=== PATIENT | male | born 2000 | race Caucasian/White ===

== ENCOUNTER 2022-08-24 12:08 | Observation (INO) ==
[~2022-08-24 12:08] MED LIST: CIPROFLOXACIN / D5W 400 MG/200 ML BAG IV SCH
[2022-08-24 12:44] LABS: Basophils # (auto) 0.03 K/uL (0-0.2); Basophils % (auto) 0.2 %; Eosinophils # (auto) 0.06 K/uL (0-0.50); Eosinophils % (auto) 0.3 %; Hematocrit (blood only) 44.8 % (40.1-51.0); Hemoglobin 15.4 g/dl (14.0-18.0); Immature Granulocytes % (auto) 0.5 %; Lymphocytes # (auto) 2.54 K/uL (1.2-3.4); Lymphocytes % (auto) 13.6 %; Mean Corpuscular Hemoglobin 29.7 pg (25.0-34.0); Mean Corpuscular Hgb Conc 34.4 g/dL (32.0-36.0); Mean Corpuscular Volume 86.5 fL (80.0-100.0); Mean Platelet Volume 9.7 fL (9.4-12.4); Monocytes # (auto) 1.57 K/uL (0.24-0.82); Monocytes % (auto) 8.4 %; Neutrophils # (auto) 14.38 K/uL (1.4-6.5); Platelet Count 211 K/uL (130-400); RDW Coefficient of Variation 12.2 % (11.5-14.5); RDW Standard Deviation 38.8 fL (36.4-46.3); Red Blood Count 5.18 M/uL (4.63-6.08); White Blood Count 18.68 K/ul (4.8-10.8)
[2022-08-24 13:18] LABS: Albumin Globulin Ratio 1.7 (0.9-2); Albumin Level 4.8 gm/dl (3.4-5.0); BUN Creatinine Ratio 14.6 (10-20); Calcium 9.9 mg/dl (8.5-10.1); Creatinine Clr Calc Pharmacy 128.8 ml/min; Est GFR (African American) 121.5 ml/min; Est GFR (Non-African American) 104.8 ml/min; Globulin 2.9 gm/dl (2.5-4.0); Total Protein 7.7 gm/dl (6.0-8.3)
[2022-08-24] MEDS ORDERED: OPTIRAY 350 100ml IV ONE (13:29)
--- NOTE | 2022-08-24 13:52 | CT Scan Report ---
CT abd pelvis IV con only CLINICAL HISTORY: RLQ ABD PAIN TECHNIQUE: Helical axial images of the abdomen and pelvis were obtained and displayed. Automated dose lowering techniques and/or adjustment according to patient size were utilized for this exam. This e xam was performed with intravenous contrast. CT DOSE: 407.46 mGy.cm COMPARISON: None available at the time of this dictation. FINDINGS: Lower chest: No acute abnormality. Liver: Unremarkable. No focal lesions are seen. Gallbladder and biliary tree: No calcified gallstones. Normal caliber wall. No intra- or extrahepatic biliary ductal dilation. Pancreas: Unremarkable, no focal lesions. Spleen: Unremarkable. Adrenals: Unremarkable. Kidneys and ureters: Unremarkable. Bladder: Unremarkable. Reproductive organs: Unremarkable. Bowel: The appendix measures 11 mm in diameter with associated fat stranding. No perforation or absce ss is seen. Lymph nodes Retroperitoneal: Unremarkable. Pelvic: Unremarkable. Mesenteric: Subcentimeter lymph nodes are noted. These are most prominent in the right lower quadrant . Peritoneum: Normal. Vessels: Unremarkable. Abdominal wall: Unremarkable. Bones: Unremarkable. IMPRESSION: Findings compatible with acute appendicitis without evidence of perforation or abscess. ACT 112: Negative or not required by law. Electronically signed by: Emerson Coreas M.D. 08/24/2022 1:51 PM
--- NOTE | 2022-08-24 14:18 | Emergency Department Note ---
Impression & Plan Acute appendicitis ED Provider Note CHIEF COMPLAINT: Right-sided abdominal pain since this morning HISTORY OF PRESENT ILLNESS: Patient is a healthy 21-year-old male who presents emergency department for evaluation of abdominal pain. His symptoms started when he woke up yesterday morning. He had vague, generalized abdominal discomfort that persisted throughout the day and got worse in the evening. He thought they were "hunger pains initially" but they got worse. He felt bloated, and tried taking some ibuprofen and Tums for his symptoms. He was able to move his bowels but it did not help. When he woke up this morning the pain was more localized to the right lower quadrant. It hurts with movement. He rates it a 7/10. He has not vomited. He has not felt feverish. He denies any urinary symptoms. REVIEW OF SYSTEMS: Review of systems as per HPI. All other systems reviewed we re negative. 10 systems reviewed. PMH: Electronic medical records are reviewed and summarized as above/below. See Problem List. SOCIAL HISTORY: Patient is a [employer] student from the [facility]. He lives locally in an apartment. He does not smoke. PHYSICAL EXAM: Vital Signs: Reviewed Nurse's notes. CONSTITUTIONAL: Patient is a pleasant, well-appearing 21-year-old male who is awake and alert and sitting semiupright on the gurney in no acute distress. EYES: Pupils equal, round, reactive to light and accommodation. EOMs intact without nystagmus. Sclera are anicteric. CARDIOVASCULAR: Regular rate and rhythm. Peripheral pulses easily palpable. RESPIRATORY: Breath sounds equal and clear to auscultation. ABDOMEN: Bowel sounds are present. The abdomen is soft, tender to percussion and palpation of the right lower quadrant with voluntary guarding. INTEGUMENTARY: No lesions or rash, normal skin turgor. LYMPH: No lymphadenopathy. EMERGENCY DEPARTMENT COURSE: The patient was seen and assessed as above. Old records were reviewed. Critical pathways were implemented prior to my assessment of the patient. CBC with differential, CMP lipase and urinalysis were ordered. He was made NPO. I did order the CT scan of the abdomen and pelvis with IV contrast while the patient was still in the waiting room given his complaint. Laboratory studies reviewed, there is an elevated white count at almost 19,000 with left shift. Electrolytes and renal functions are normal. Transaminases and lipase are not elevated. He has not yet provided a urine sample. CT scan of the abdomen and pelvis with IV contrast is consistent with acute appendicitis without perforation or abscess. No other acute findings. I was able to review the patient's CT scan, he was still out in the waiting room, I asked our nursing staff to get him into a room, he was placed in C12. He was examined at this time. Test results were discussed with him. He has been n.p.o. today. I did order some IV fluids and a COVID swab which was negative. Consultation was placed with general surgery, Dr. Rios, who will see the patient and take him to the OR. Differential diagnoses considered included appendicitis, UTI, kidney stone, pyelonephritis, hernia, infectious versus inflammatory colitis/enteritis, foodborne illness, mesenteric adenitis, among others. Past Med/Surg History Medical History No significant past medical history Surgical History No history of previous surgery Social History Smoking Status: Never smoker Feels Safe at Home: Yes Allergies Allergies Allergy/AdvReac Type Severity Reaction Status Date / Time Penicillins Allergy Intermediate Rash, hives Verified 08/24/22 14:17 Results & Data (ED) Vital Signs Vital Signs - 24 hr 08/24/22 12:14 08/24/22 14:01 Temperature 36.7 C Temperature Source Temporal Artery Scan Pulse Rate 79 Pulse Rate [Right Finger] 80 Respiratory Rate 16 18 Blood Pressure 142/93 H Blood Pressure [Right Arm] 136/90 Blood Pressure Mean 109 Blood Pressure Mean [Right Arm] 105 Pulse Oximetry 95 98 Oxygen Delivery Method Room Air Sepsis Recent Fever Within 48 Hours No Sepsis New/Unexplained Change in Mental Status No Sepsis Action Taken by Nursing No Action Required Home Medications Current Medication List: was personally reviewed by me Laboratory Data Attestation: I reviewed the patient's lab results. Result diagrams: 08/24/22 12:19 08/24/22 12:19 Lab Results 08/24/22 08/24/22 08/24/22 Range/Units 12:19 12:19 14:34 WBC 18.68 H (4.8-10.8) K/ul RBC 5.18 (4.63-6.08) M/uL Hgb 15.4 (14.0-18.0) g/dl Hct 44.8 (40.1-51.0) % MCV 86.5 (80.0-100.0) fL MCH 29.7 (25.0-34.0) pg MCHC 34.4 (32.0-36.0) g/dL RDW Std Deviation 38.8 (36.4-46.3) fL RDW Coeff of Nathan 12.2 (11.5-14.5) % Plt Count 211 (130-400) K/uL MPV 9.7 (9.4-12.4) fL Immature Gran % (Auto) 0.5 % Neut % (Auto) 77.0 % Lymph % (Auto) 13.6 % [place] % (Auto) 8.4 % Eos % (Auto) 0.3 % Baso % (Auto) 0.2 % Neut # (Auto) 14.38 H (1.4-6.5) K/uL Lymph # (Auto) 2.54 (1.2-3.4) K/uL [place] # (Auto) 1.57 H (0.24-0.82) K/uL Eos # (Auto) 0.06 (0-0.50) K/uL Baso # (Auto) 0.03 (0-0.2) K/uL Immature Gran # (Auto) 0.10 H (0.00-0.02) K/uL Sodium 140 (136-145) mmol/L Potassium 4.0 (3.5-5.1) mmol/L Chloride 102 (98-107) mmol/L Carbon Dioxide 32 (21-32) mmol/L Anion Gap 6 (3-11) BUN 15 (6-23) mg/dl Creatinine 1.03 (0.6-1.4) mg/dl Est Cr Clr Drug Dosing 128.8 ml/min Est GFR ( Amer) 121.5 ml/min Est GFR (Non-Af Amer) 104.8 ml/min BUN/Creatinine Ratio 14.6 (10-20) Glucose 101 H (70-99(Fasting)) mg/dl Calcium 9.9 (8.5-10.1) mg/dl Total Bilirubin 1.0 (0.2-1.0) mg/dl AST 19 (13-39) U/L ALT 17 (7-52) U/L Alkaline Phosphatase 61 (34-104) U/L Total Protein 7.7 (6.0-8.3) gm/dl Albumin 4.8 (3.4-5.0) gm/dl Globulin 2.9 (2.5-4.0) gm/dl Albumin/Globulin Ratio 1.7 (0.9-2) Lipase 11 (11-82) U/L SARS-CoV-2, RNA, NAAT NEGATIVE (NEGATIVE) Administered Medications Sodium Chloride (Nss 1000ml) 1,000 mls @ 999 mls/hr IV .Q1H1M KIMMIE Stop: 08/24/22 15:22 Last Admin: 08/24/22 14:39 Dose: 999 mls/hr Documented By: OMAR Sodium Chloride (Nss 1000ml) 1,000 mls @ 250 mls/hr IV .Q4H KIMMIE Stop: 09/23/22 14:29 Last Admin: 08/24/22 14:39 Dose: 250 mls/hr Documented By: OMAR Discontinued Medications Ioversol (Optiray 350 100ml) 86 ml IV ONCE ONE Stop: 08/24/22 13:30 Last Admin: 08/24/22 13:30 Dose: 86 ml Documented By: [facility] Imaging Data Attestation: I personally reviewed and interpreted this imaging study as follows : Radiologist's Impression: Abdomen/Pelvis CT 08/24/22 12:35 CT abd pelvis IV con only CLINICAL HISTORY: RLQ ABD PAIN TECHNIQUE: Helical axial images of the abdomen and pelvis were obtained and displayed. Automated dose lowering techniques and/or adjustment according to patient size were utilized for this exam. This exam was performed with intravenous contrast. CT DOSE: 407.46 mGy.cm COMPARISON: None available at the time of this dictation. FINDINGS: Lower chest: No acute abnormality. Liver: Unremarkable. No focal lesions are seen. Gallbladder and biliary tree: No calcified gallstones. Normal caliber wall. No intra- or extrahepatic biliary ductal dilation. Pancreas: Unremarkable, no focal lesions. Spleen: Unremarkable. Adrenals: Unremarkable. Kidneys and ureters: Unremarkable. Bladder: Unremarkable. Reproductive organs: Unremarkable. Bowel: The appendix measures 11 mm in diameter with associated fat stranding. No perforation or abscess is seen. Lymph nodes Retroperitoneal: Unremarkable. Pelvic: Unremarkable. Mesenteric: Subcentimeter lymph nodes are noted. These are most prominent in the right lower quadrant. Peritoneum: Normal. Vessels: Unremarkable. Abdominal wall: Unremarkable. Bones: Unremarkable. IMPRESSION: Findings compatible with acute appendicitis without evidence of perforation or abscess. ACT 112: Negative or not required by law. Electronically signed by: Emerson Coreas M.D. 08/24/2022 1:51 PM Discharge Plan Visit Data Chief Complaint: Abdominal Pain Stated Complaint: RLQ ABD PAIN ED Provider: Jose Antonio Fong ED Midlevel Provider: Timbo Jamison Discharge Problem: Acute appendicitis Patient Disposition: Being Evaluated by Surgeon Forms Stand Alone Forms: [facility] Referrals Referrals: PCP,NO [Primary Care Provider] -
[2022-08-24] MEDS ORDERED: SODIUM CHLORIDE 0.9% 1000ML 1,000 ML IV SCH (14:22)
[2022-08-24] MEDS: SODIUM CHLORIDE 0.9% 1000ML 1,000 ML IV SCH ×2 (14:39→22:24)
--- NOTE | 2022-08-24 14:57 | Surgery Consultation ---
Date of Consultation August 24, 2022 Assessment & Plan (1) Acute appendicitis: pt is a 21 year-old male who presents to Er with one day history RLQ pain, IMP: acute appendicitis, plan, I recommend to do laparoscopic appendectomy, possible open , D/w benefits, risks and alternatives of the surgery, the risks - infection, bleeding, injury other organs, abscess, bowel obstruction, incisional hernia, pt understood, he agreed with surgery, he signed informed consent, I answered all questions, pre- op iv antibiotic, History of Present Illness Reason for Consultation: acute appendicitis Requesting Physician: WILY Ramírez Attending Physician: CHIEF COMPLAINT: Right-sided abdominal pain since this morning HISTORY OF PRESENT ILLNESS: Patient is a healthy 21-year-old male who presents emergency department for evaluation of abdominal pain. His symptoms started when he woke up yesterday morning. He had vague, generalized abdominal discomfort that persisted throughout the day and got worse in the evening. He thought they were "hunger pains initially" but they got worse. He felt bloated, and tried taking some ibuprofen and Tums for his symptoms. He was able to move his bowels but it did not help. When he woke up this morning the pain was more localized to the right lower quadrant. It hurts with movement. He rates it a 7/10. He has not vomited. He has not felt feverish. He denies any urinary symptoms. I ( Christopher Rios MD ) got a call for consult acute appendictis, I reviewed pt's H/P, labs and CT scan with pt, REVIEW OF SYSTEMS: Review of systems as per HPI. All other systems reviewed were negative. 10 systems reviewed. PMH: Electronic medical records are reviewed and summarized as above/below. See Problem List. SOCIAL HISTORY: Patient is a [employer] student from the [employer] [facility] [employer]. He lives locally in an apartment. He does not smoke. PHYSICAL EXAM: Vital Signs: Reviewed Nurse's notes. CONSTITUTIONAL: Patient is a pleasant, well-appearing 21-year-old male who is awake and alert and sitting semiupright on the gurney in no acute distress. EYES: Pupils equal, round, reactive to light and accommodation. EOMs intact without nystagmus. Sclera are anicteric. CARDIOVASCULAR: Regular rate and rhythm. Peripheral pulses easily palpable. RESPIRATORY: Breath sounds equal and clear to auscultation. ABDOMEN: Bowel sounds are present. The abdomen is soft, tender to percussion and palpation of the right lower quadrant with voluntary guarding. INTEGUMENTARY: No lesions or rash, normal skin turgor. LYMPH: No lymphadenopathy. EMERGENCY DEPARTMENT COURSE: The patient was seen and assessed as above. Old records were reviewed. Critical pathways were implemented prior to my assessment of the patient. CBC with differential, CMP lipase and urinalysis were ordered. He was made NPO. I did order the CT scan of the abdomen and pelvis with IV contrast while the patient was still in the waiting room given his complaint. Laboratory studies reviewed, there is an elevated white count at almost 19,000 with left shift. Electrolytes and renal functions are normal. Transaminases and lipase are not elevated. He has not yet provided a urine sample. CT scan of the abdomen and pelvis with IV contrast is consistent with acute appendicitis without perforation or abscess. No other acute findings. I was able to review the patient's CT scan, he was still out in the waiting room, I asked our nursing staff to get him into a room, he was placed in C12. Test results were discussed with him. He has been n.p.o. today. I did order some IV fluids and a COVID swab. Consultation was placed with general surgery, Dr. Rios, who will see the patient and take him to the OR. Past Med/Surg History Medical History No significant past medical history Surgical History No history of previous surgery Social History Smoking Status: Never smoker Feels Safe at Home: Yes Allergies Allergies Allergy/AdvReac Type Severity Reaction Status Date / Time Penicillins Allergy Intermediate Rash, hives Verified 08/24/22 14:17 Results & Data (ED) Vital Signs Vital Signs - 24 hr 08/24/22 12:14 08/24/22 14:01 Temperature 36.7 C Temperature Source Temporal Artery Scan Pulse Rate 79 Pulse Rate [Right Finger] 80 Respiratory Rate 16 18 Blood Pressure 142/93 H Blood Pressure [Right Arm] 136/90 Blood Pressure Mean 109 Blood Pressure Mean [Right Arm] 105 Pulse Oximetry 95 98 Oxygen Delivery Method Room Air Sepsis Recent Fever Within 48 Hours No Sepsis New/Unexplained Change in Mental Status No Sepsis Action Taken by Nursing No Action Required Home Medications Current Medication List: was personally reviewed by me Laboratory Data Attestation: I reviewed the patient's lab results. Result diagrams: 08/24/22 12:19 08/24/22 12:19 Lab Results 08/24/22 08/24/22 Range/Units 12:19 12:19 WBC 18.68 H (4.8-10.8) K/ul RBC 5.18 (4.63-6.08) M/uL Hgb 15.4 (14.0-18.0) g/dl Hct 44.8 (40.1-51.0) % MCV 86.5 (80.0-100.0) fL MCH 29.7 (25.0-34.0) pg MCHC 34.4 (32.0-36.0) g/dL RDW Std Deviation 38.8 (36.4-46.3) fL RDW Coeff of Nathan 12.2 (11.5-14.5) % Plt Count 211 (130-400) K/uL MPV 9.7 (9.4-12.4) fL Immature Gran % (Auto) 0.5 % Neut % (Auto) 77.0 % Lymph % (Auto) 13.6 % [place] % (Auto) 8.4 % Eos % (Auto) 0.3 % Baso % (Auto) 0.2 % Neut # (Auto) 14.38 H (1.4-6.5) K/uL Lymph # (Auto) 2.54 D (1.2-3.4) K/uL [place] # (Auto) 1.57 H (0.24-0.82) K/uL Eos # (Auto) 0.06 (0-0.50) K/uL Baso # (Auto) 0.03 (0-0.2) K/uL Immature Gran # (Auto) 0.10 H (0.00-0.02) K/uL Sodium 140 (136-145) mmol/L Potassium 4.0 (3.5-5.1) mmol/L Chloride 102 (98-107) mmol/L Carbon Dioxide 32 (21-32) mmol/L Anion Gap 6 (3-11) BUN 15 (6-23) mg/dl Creatinine 1.03 (0.6-1.4) mg/dl Est Cr Clr Drug Dosing 128.8 ml/min Est GFR ( Amer) 121.5 ml/min Est GFR (Non-Af Amer) 104.8 ml/min BUN/Creatinine Ratio 14.6 (10-20) Glucose 101 H (70-99(Fasting)) mg/dl Calcium 9.9 (8.5-10.1) mg/dl Total Bilirubin 1.0 (0.2-1.0) mg/dl AST 19 (13-39) U/L ALT 17 (7-52) U/L Alkaline Phosphatase 61 (34-104) U/L Total Protein 7.7 (6.0-8.3) gm/dl Albumin 4.8 (3.4-5.0) gm/dl Globulin 2.9 (2.5-4.0) gm/dl Albumin/Globulin Ratio 1.7 (0.9-2) Lipase 11 (11-82) U/L Administered Medications Discontinued Medications Ioversol (Optiray 350 100ml) 86 ml IV ONCE ONE Stop: 08/24/22 13:30 Last Admin: 08/24/22 13:30 Dose: 86 ml Documented By: [facility] Imaging Data Attestation: I personally reviewed and interpreted this imaging study as follows: Radiologist's Impression: Abdomen/Pelvis CT 08/24/22 12:35 CT abd pelvis IV con only CLINICAL HISTORY: RLQ ABD PAIN TECHNIQUE: Helical axial images of the abdomen and pelvis were obtained and displayed. Automated dose lowering techniques and/or adjustment according to patient size were utilized for this exam. This exam was performed with intravenous contrast. CT DOSE: 407.46 mGy.cm COMPARISON: None available at the time of this dictation. FINDINGS: Lower chest: No acute abnormality. Liver: Unremarkable. No focal lesions are seen. Gallbladder and biliary tree: No calcified gallstones. Normal caliber wall. No intra- or extrahepatic biliary ductal dilation. Pancreas: Unremarkable, no focal lesions. Spleen: Unremarkable. Adrenals: Unremarkable. Kidneys and ureters: Unremarkable. Bladder: Unremarkable. Reproductive organs: Unremarkable. Bowel: The appendix measures 11 mm in diameter with associated fat stranding. No perforation or abscess is seen. Lymph nodes Retroperitoneal: Unremarkable. Pelvic: Unremarkable. Mesenteric: Subcentimeter lymph nodes are noted. These are most prominent in the right lower quadrant. Peritoneum: Normal. Vessels: Unremarkable. Abdominal wall: Unremarkable. Bones: Unremarkable. IMPRESSION: Findings compatible with acute appendicitis without evidence of perforation or abscess. ACT 112: Negative or not required by law. Electronically signed by: Emerson Coreas M.D. 08/24/2022 1:51 PM Allergies Allergy/AdvReac Type Severity Reaction Status Date / Time Penicillins Allergy Intermediate Rash, hives Verified 08/24/22 14:17 Patient History Medical History No significant past medical history Surgical History No history of previous surgery Social History Smoking Status: Never smoker Feels Safe at Home: Yes Review of Systems Constitutional: as per Subjective / HPI Eyes: as per Subjective / HPI Respiratory: as per Subjective / HPI Cardiovascular: as per Subjective / HPI Gastrointestinal: as per Subjective / HPI Genitourinary: + as per Subjective / HPI Neurologic: as per Subjective / HPI Psychiatric: as per Subjective / HPI Endocrine: as per Subjective / HPI Hematologic / Lymphatic: as per Subjective / HPI Physical Exam Constitutional: WD/WN, vitals as above Eyes: PERRL, conjunctivae normal, anicteric sclerae Neck: trachea midline, no thyromegaly Respiratory: normal respiratory effort, lungs clear to auscultation Cardiovascular: RRR, no murmur, no edema Gastrointestinal (Abdomen): soft, tenderness at RLQ, no rebound pain, no distend, BS +, Musculoskeletal: no cyanosis or clubbing, extremities motor strength 5/5 Neurologic: patellar DTR's 2+ bilat, sensation intact Psychiatric: A+Ox3, euthymic affect Results & Data ([facility]) Vital Signs (Past 12 Hours) Vital Signs Temp Pulse Pulse Resp BP BP Pulse Ox 08/24/22 14:01 80 18 136/90 98 08/24/22 12:14 36.7 C 79 16 142/93 H 95 O2 Del Method 08/24/22 14:01 08/24/22 12:14 Room Air Laboratory Results Abnormal lab results 08/24/22 08/24/22 Range/Units 12:19 12:19 WBC 18.68 H (4.8-10.8) K/ul Neut # (Auto) 14.38 H (1.4-6.5) K/uL [place] # (Auto) 1.57 H (0.24-0.82) K/uL Immature Gran # (Auto) 0.10 H (0.00-0.02) K/uL Glucose 101 H (70-99(Fasting)) mg/dl Diagnostic Findings CT abd pelvis IV con only CLINICAL HISTORY: RLQ ABD PAIN TECHNIQUE: Helical axial images of the abdomen and pelvis were obtained and displayed. Automated dose lowering techniques and/or adjustment according to patient size were utilized for this exam. This exam was performed with intravenous contrast. CT DOSE: 407.46 mGy.cm COMPARISON: None available at the time of this dictation. FINDINGS: Lower chest: No acute abnormality. Liver: Unremarkable. No focal lesions are seen. Gallbladder and biliary tree: No calcified gallstones. Normal caliber wall. No intra- or extrahepatic biliary ductal dilation. Pancreas: Unremarkable, no focal lesions. Spleen: Unremarkable. Adrenals: Unremarkable. Kidneys and ureters: Unremarkable. Bladder: Unremarkable. Reproductive organs: Unremarkable. Bowel: The appendix measures 11 mm in diameter with associated fat stranding. No perforation or abscess is seen. Lymph nodes Retroperitoneal: Unremarkable. Pelvic: Unremarkable. Mesenteric: Subcentimeter lymph nodes are noted. These are most prominent in the right lower quadrant. Peritoneum: Normal. Vessels: Unremarkable. Abdominal wall: Unremarkable. Bones: Unremarkable.
--- NOTE | 2022-08-24 15:02 | History & Physical Bridge Note ---
Date of Service August 24, 2022 History & Physical Bridge Note I have examined the patient, reviewed the History & Physical and in the interval since the performance of the History & Physical I have noted the following changes of clinical significance: no changes noted
--- NOTE | 2022-08-24 15:51 | Anesthesiology Consultation ---
Date of Service August 24, 2022 Assessment & Plan (1) Encounter for pre-operative examination: Chart Review Chart Review: Acceptable Risk for Surgery and Patient NOT seen in Pre Admission Testing Consults Requested none History Surgery Operation Date: 08/24/22 12:15 Proposed Procedures p Laparoscopic Appendectomy - Christopher Rios MD Height/Weight Height: 5 ft 10 in Weight: 87.9 kg Allergies Allergy/AdvReac Type Severity Reaction Status Date / Time Penicillins Allergy Intermediate Rash, hives Verified 08/24/22 14:17 Medications Active Medications Generic Name Dose Route Start Last Admin Trade Name Freq PRN Reason Stop Dose Admin Sodium Chloride 1,000 mls @ 250 mls/hr 08/24/22 14:30 08/24/22 14:39 Nss 1000ml IV 09/23/22 14:29 250 mls/hr .Q4H KIMMIE Administration Past Medical History Medical History No significant past medical history Past Surgical History Surgical History No history of previous surgery Social History Smoking Status: Never smoker Physical Exam Vital Signs Last Vital Signs Temp 36.7 C 08/24/22 12:14 Pulse 80 08/24/22 14:01 Resp 18 08/24/22 14:01 BP 136/90 08/24/22 14:01 Pulse Ox 98 08/24/22 14:01 O2 Del Method 08/24/22 12:14 Testing Laboratory Results 08/24/22 12:19 08/24/22 12:19
[2022-08-24] MEDS ORDERED: ONDANSETRON INJ 2 MG/ML 2 ML VIAL ONE (18:50)
[2022-08-24] MEDS ORDERED: MIDAZOLAM HCL 1 MG/ML 2ML VIAL ONE (18:50)
[2022-08-24] MEDS ORDERED: DEXAMETHASONE SOD INJ 4 MG/ML VIAL ONE ×2 (18:50→19:50)
[2022-08-24] MEDS ORDERED: PROPOFOL IV EMULSION 10 MG/ML 20 ML VIAL IV ONE (18:50)
[2022-08-24] MEDS ORDERED: SUCCINYLCHOLINE CHLORIDE 20 MG/ML 10 ML VIAL IV ONE (18:50)
[2022-08-24] MEDS ORDERED: NEOSTIGMINE METHYLSULFATE 1 MG/ML 10ML VIAL ONE (18:50)
[2022-08-24] MEDS ORDERED: KETOROLAC 30 MG/ML VIAL ONE (18:50)
[2022-08-24] MEDS ORDERED: ROCURONIUM BROMIDE 10 MG/ML 5 ML VIAL IV ONE (18:50)
[2022-08-24] MEDS ORDERED: GLYCOPYRROLATE 0.2 MG/ML VIAL ONE (18:50)
[2022-08-24] MEDS ORDERED: fentaNYL citrate 100 MCG/2 ML VIAL ONE ×2 (18:50)
[2022-08-24] MEDS ORDERED: ONDANSETRON INJ 2 MG/ML 2 ML VIAL IV PRN ×2 (19:10→20:30)
[2022-08-24] MEDS ORDERED: PROMETHAZINE HCL 6.25 MG in SODIUM CHLORIDE 0.9% 50 ML IV PRN (19:10)
[2022-08-24] MEDS ORDERED: fentaNYL citrate 100 MCG/2 ML VIAL IV PRN (19:10)
[2022-08-24] MEDS ORDERED: ATROPINE SULFATE 0.1 MG/ML 10ML SYR IV PRN (19:10)
[2022-08-24] MEDS ORDERED: ePHEDrine sulfate 50 MG/ML AMP IV PRN (19:10)
[2022-08-24] MEDS ORDERED: HYDROmorphone INJ 2 MG/ML SYR/VIAL IV PRN (19:10)
[2022-08-24] MEDS ORDERED: ACETAMINOPHEN 1,000 MG/100 ML VIAL IV STA (19:10)
[2022-08-24] MEDS ORDERED: BUPIVACAINE 0.5 % 5 MG/1 ML MPF 30ML VIAL ONE (19:19)
[2022-08-24] MEDS ORDERED: BACITRACIN OINT 15 GM TUBE ONE (19:19)
[2022-08-24] MEDS ORDERED: LIDOCAINE 1% LOCAL 20 ML VIAL ONE (19:20)
[2022-08-24] MEDS ORDERED: diphenhydrAMINE 50 MG/ML VIAL ONE (19:49)
--- NOTE | 2022-08-24 20:24 | Post Operative Brief Note ---
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
--- NOTE | 2022-08-24 20:55 | Anesthesiology Progress Note ---
Date of Service August 24, 2022 Anesthesia Post Procedure Vital Signs Vital Signs: Temp Pulse Pulse Pulse Resp BP BP 08/24/22 20:50 101 H 16 131/86 08/24/22 20:41 36.5 C 102 H 24 145/90 H 08/24/22 18:45 37.8 C H 127 H 19 145/97 H 08/24/22 18:00 85 16 08/24/22 16:00 84 18 08/24/22 14:01 80 18 08/24/22 12:14 36.7 C 79 16 142/93 H BP Pulse Ox O2 Del Method 08/24/22 20:50 98 Room Air 08/24/22 20:41 99 Room Air 08/24/22 18:45 98 Room Air 08/24/22 18:00 144/84 H 98 Room Air 08/24/22 16:00 97 Room Air 08/24/22 14:01 136/90 98 08/24/22 12:14 95 Room Air Pain Intensity Right Lower Abdomen: Pain Intensity: 4 Transfer of Care Handoff Completed per policy Notes Mental Status: alert / awake / arousable and participated in evaluation Patient Amnestic to Procedure: Yes Nausea / Vomiting: adequately controlled Pain: adequately controlled Airway Patency, RR, SpO2: stable & adequate BP & HR: stable & adequate Hydration State: stable & adequate Anesthetic Complications: no major complications apparent and Pt Satisfied with anesthetic care
[2022-08-24] MEDS ORDERED: oxyCODONE/ACETAMINOPHEN 5mg/325mg TAB PO PRN (21:31)
[2022-08-24] MEDS ORDERED: HYDROmorphone INJ 0.5 MG/0.5 ML SYR IV PRN (21:31)
[2022-08-24] MEDS ORDERED: LACTATED RINGER'S 1,000 ML IV SCH (21:31)
--- NOTE | 2022-08-24 21:45 | Operative Report (OR) ---
PREOPERATIVE DIAGNOSIS: Acute appendicitis. POSTOPERATIVE DIAGNOSIS: Acute appendicitis. OPERATION: Laparoscopic appendectomy. SURGEON: Christopher Rios MD ANESTHESIA: General. ESTIMATED BLOOD LOSS: About 10 mL. FINDINGS: Significant inflammation on the appendix, confirmed diagnosis of acute appendicitis. COMPLICATIONS: None. INDICATIONS FOR THE PROCEDURE: This is a 21-year-old gentleman who presented to the ED with 1-day hi story of right lower quadrant pain. The patient had a CT scan diagnosis of acute appendicitis. I re commended to do laparoscopic appendectomy, possible open. I did talk to the patient about the benefi ts, risks, alternate procedures. I indicated the risks may include, but not limited to, such as blee ding, infection, abscess, injury to other organs, bowel obstruction, incisional hernia. The patient understands. He signed informed consent and I answered all questions. DETAILS OF PROCEDURE: After we identified the patient and verified the procedure, we brought in the patient to the OR, put the patient in the supine position on the OR table. The patient received SCDs on bilateral legs to prevent DVT. Also, the patient received 400 mg of Cipro IV for prophylactic an tibiotic. The patient received general anesthesia without difficulty. The abdomen was prepped and d raped in routine sterile fashion. After timeout, I injected the local anesthesia by using 1% lidocai ne mixed with 0.5% Marcaine just above the umbilicus, then I made a small incision just above umbilic us, opened fascia, opened peritoneum. Under direct vision, put a Bob trocar in, connected to CO2 to create pneumoperitoneum, flow rate at 6 liters per minute, pressure not more than 14 mmHg. Once we got a nice pneumoperitoneum, we put a camera in, looked around the abdomen, it showed normal finding on the small bowel, large bowel; however, the appendix showed significant inflammation with e nlarged appendix, size about 1 cm diameter, confirmed diagnosis of acute appendicitis. Once we confi rmed the diagnosis, I put another two 5 mm trocars on the left lower quadrant area. Once all trocars in, we used the Harmonic to take down the appendiceal, rechecked, no active bleeding. Then, I used a 45 mm Endo-MIAH stapler for transection on the base of appendix, rechecked the staple line, intact. No leak and no active bleeding. Then, I removed the appendix through the catch bag. Then, I reinse rted Bob trocar in, connected to CO2 to create pneumoperitoneum. Again looked around the abdomen, no active bleeding, no leak from staple line. Then, I removed all trocars under direct vision. No a ctive bleeding from the trocar sites. Pneumoperitoneum was released. Then I closed the umbilical in cision fascial layer by using 0 Vicryl [id number] x2, closed subcutaneous layer by using 2-0 Mark ryl interruptedly, closed skin by using 4-0 Vicryl continuous running, closed another two 5 mm trocar sites of skin only by using 4-0 Vicryl. Then, we put the dressing on. The patient tolerated the pr ocedure well. All instrument, needle, and sponge counts were correct x2 at the end of the case. The patient was transferred to recovery room in stable condition. The specimen was sent to pathology. After the procedure, I did talk to the patient and the patient's family member about the OR finding a nd the procedure we did, they understand. Job ID: [id number]
[2022-08-24] MEDS: metroNIDAZOLE 500 MG/100 ML BAG IV SCH (22:30)
[2022-08-25 03:44] LABS: Appearance Urine Clear (Clear); Bilirubin Urine Negative (Negative); Blood Urine Negative (Negative); Color Urine Yellow; Glucose Urine UA Trace (Negative); Ketones Urine Negative (Negative); Leukocyte Esterase Urine Negative (Negative); Nitrite Urine Negative (Negative); Protein Urine Negative (Negative); Specific Gravity Urine 1.015 (1.000-1.030); Urobilinogen Urine Negative (Negative); pH Urine 6.5 (4.5-7.5)
[2022-08-25 06:00] LABS: Basophils # (auto) 0.01 K/uL (0-0.2); Basophils % (auto) 0.1 %; Hematocrit (blood only) 41.3 % (40.1-51.0); Hemoglobin 14.3 g/dl (14.0-18.0); Immature Granulocytes # (auto) 0.07 K/uL (0.00-0.02); Immature Granulocytes % (auto) 0.5 %; Mean Corpuscular Hemoglobin 29.6 pg (25.0-34.0); Mean Corpuscular Hgb Conc 34.6 g/dL (32.0-36.0); Mean Corpuscular Volume 85.5 fL (80.0-100.0); Mean Platelet Volume 9.7 fL (9.4-12.4); Monocytes # (auto) 0.37 K/uL (0.24-0.82); Monocytes % (auto) 2.9 %; Neutrophils # (auto) 11.56 K/uL (1.4-6.5); Neutrophils % (auto) 89.5 %; Platelet Count 200 K/uL (130-400); RDW Coefficient of Variation 12.4 % (11.5-14.5); RDW Standard Deviation 38.9 fL (36.4-46.3); Red Blood Count 4.83 M/uL (4.63-6.08); White Blood Count 12.91 K/ul (4.8-10.8)
[2022-08-25] MEDS: metroNIDAZOLE 500 MG/100 ML BAG IV SCH (06:01)
[2022-08-25 06:13] LABS: Albumin Globulin Ratio 1.4 (0.9-2); BUN Creatinine Ratio 13.5 (10-20); Bilirubin,Total 0.9 mg/dl (0.2-1.0); Calcium 9.4 mg/dl (8.5-10.1); Creatinine Clr Calc Pharmacy 138.2 ml/min; Est GFR (African American) 132.3 ml/min; Est GFR (Non-African American) 114.1 ml/min; Globulin 2.8 gm/dl (2.5-4.0); Potassium 4.3 mmol/L (3.5-5.1); Total Protein 6.8 gm/dl (6.0-8.3)
[2022-08-25] MEDS ORDERED: CIPROFLOXACIN / D5W 400 MG/200 ML BAG IV SCH (08:00)
--- NOTE | 2022-08-25 09:16 | Discharge Summary ---
Date of Service August 25, 2022 Admission HPI Per Admitting Provider Patient is a healthy 21-year-old male who presents emergency department for evaluation of abdominal pain. His symptoms started when he woke up yesterday morning. He had vague, generalized abdominal discomfort that persisted throughout the day and got worse in the evening. He thought they were "hunger pains initially" but they got worse. He felt bloated, and tried taking some ibuprofen and Tums for his symptoms. He was able to move his bowels but it did not help. When he woke up this morning the pain was more localized to the right lower quadrant. It hurts with movement. He rates it a 7/10. He has not vomited. He has not felt feverish. He denies any urinary symptoms. I ( Christopher Rios MD ) got a call for consult acute appendictis, I reviewed pt's H/P, labs and CT scan with pt, Principal Diagnosis acute appendicitis Discharge Exam Constitutional WD/WN, vitals as above cooperative and comfortable; no acute distress and not ill appearing Neck normal visual inspection and trachea midline Respiratory normal respiratory effort; no respiratory distress and no labored breathing Gastrointestinal (Abdomen) Inspection/Auscultation: abdomen normal to inspection, + abdominal surgical inci woodrow (covered with clean/dry dressings) and + hypoactive bowel sounds; abdomen not distended Percussion/Palpation: + abdomen tender (mild at incision sites) and abdomen soft; no guarding and abdomen not rigid Skin no rashes, warm and dry Psychiatric A+Ox3, euthymic affect Discharge Data Allergies Allergy/AdvReac Type Severity Reaction Status Date / Time Penicillins Allergy Intermediate Rash, hives Verified 08/24/22 14:17 Procedures Performed Operation Date: 08/24/22 12:15 Actual Procedures p Laparoscopic Appendectomy(Not Applicable) - Christopher Rios MD Ordered Studies 08/24/22 12:35 CT Abd and Pelvis [CT abd pelvis IV con only] Stat Hospital Course (1) Acute appendicitis: Patient was taken to operating room from the emergency department for laparoscopic appendectomy possible open by Dr. Rios. Patient was found to have acute appendicitis without perforation or abscess. Patient tolerated procedure well and was transferred to recovery and then to medical/surgical floor for postoperative care. His diet was advanced as tolerated activity as tolerated, IV Dilaudid and p.o. Percocet as needed for pain. Patient was evaluated on postop day #1, afebrile, vital signs stable. Minimal pain and was not requiring any pain medication. Has not ambulated the hallway. Urinating without difficulty. Patient was instructed to ambulate the hallway and if tolerated he can be discharged home later this morning. Patient was discharged home on postop day #1 in stable condition. Total Time Total Time Spent Total Time Spent (In Minutes): 30 minutes Total Time Includes: Examination of the Patient, Discharge Planning and Medication Reconciliation Discharge Plan Discharge Items Patient Disposition: Home - Self-Care Reason For Visit: ABDOMINAL PAIN Discharge Diagnosis: Acute appendicitis Activity: Per Instructions section Non-emergency contact: Surgeon Call non-emergency contact if: you have any medication questions, your pain is not controlled, your pain is worsening, your pain is concerning for you, you have a fever, your temperature is above 101, your wound has increased redness, your wound has increased drainage and your wound pain has increased Follow-up/Referrals: Liliane Oliva PA-C [Physician [facility]ing [facility] Testing Lead Hand] - 08/31/22 10:45 am PCPNAI [Primary Care Provider] - Diet: Regular Addtl Attending Provider Instructions: Post-Surgical ~Discharge Instructions Activity Recommendations: - lifting limitation: (20 pounds for 4 weeks), - exercise/sex/sports limit: (nonstrenuous for 4 weeks), - driving or machine use limit: (none for 1 week or until pain free and no longer taking narcotic pain medication), - Shower/bathe limit: (may shower beginning Sunday) Diet: - Resume previous diet SPECIAL CARE INSTRUCTIONS: - May shower on Sunday, sponge bath and wash hair in meantime. On Sunday, remove outer dressings and shower. Let water run over area and pat dry. - Leave steri strips on for one week and then remove. They may fall off on their own , that is okay. - Call the surgeon's office with any questions or concerns - - (ex. temperature higher than 101 degrees F, excessive bleeding or pain). - Wear LIZ stockings during your flight/travel back home. Recommend getting up and walking aisle on flight if possible and keep legs moving while sitting still to keep blood flow in your lower extremities and to prevent blood clots from forming. MEDICATIONS: - Resume previous medications unless instructed otherwise by your surgeon. - May alternate extra strength Tylenol and Ibuprofen as needed for mild to moderate pain -650 mg Tylenol every 6 hours as needed - Ibuprofen 600 mg every 6 hours as needed (take with food) - Percocet 1 every 6 hours, as needed for moderate to severe pain - May want to take daily stool softener (Colace) while taking narcotic pain medication to prevent constipation or straining. Drink plenty of water daily. FOLLOW UP VISIT: - Follow-up telephone visit is scheduled for 08/31/22 at 10:45 am with Liliane Oliva PA-C. Office number Pending Studies at Discharge: Yes (appendix pathology, will be reviewed at postop visit) Stand-Alone Forms: My [facility], Work/School Release, Smoking Ce ssation Medications and DC Order Prescriptions: New oxycodone-acetaminophen 5-325 mg tablet 1 tab PO Q6H PRN (Reason: pain) Qty: 7 0RF Discharge Orders: Discharge Order (Routine); Ordered 08/25/22 Ordered By: Liliane Cardenas/Other Patient Handouts: Appendectomy Admission Data Admit Date/Time: 08/24/22 20:30 Attending Provider: Christopher Rios Admit Provider: Christopher Rios Primary Care Provider: PCPNAI
[2022-08-25] MEDS ORDERED: ACETAMINOPHEN 325 MG TAB PO PRN (10:55)
== END 2022-08-25 13:29 | disposition home or self-care (01) ==
LOC: ED 12:08 → 3E 12:08